=== PATIENT | male | born 1955 | race Caucasian/White ===

== ENCOUNTER 2020-01-10 07:03 | Emergency (ER) | payer MEDICAID, SELFPAY ==
[~2020-01-10] VITALS: Ht 185.4 cm; Wt 95.3 kg
[2020-01-10] MEDS ORDERED: PANTOPRAZOLE 40MG VIAL (C9113 PER 1) IV ONE (07:45)
[2020-01-10] MEDS ORDERED: LIDOCAINE 5% (LIDODERM) PATCH TD ONE (07:45)
[2020-01-10] MEDS ORDERED: ACETAMINOPHEN 325 MG TAB PO ONE (07:45)
--- NOTE | 2020-01-10 08:24 | REPVR ---
PROCEDURE INFORMATION: Exam: XR Complete Acute Abdomen Series Exam date and time: 01/10/2020 7:54 AM Age: 64 years old Clinical indication: Abdominal pain TECHNIQUE: Imaging protocol: XR complete acute abdomen series, including 2 or more views of the abdomen and a single view chest. COMPARISON: CR Abdomen, Flat Upright, PA CHEST 05/19/2015 12:45 PM FINDINGS: Lungs: Normal. No consolidation. Pleural space: Normal. No pneumothorax. Heart/Mediastinum: Normal. No cardiomegaly. Gastrointestinal tract: Copious stool in the colon. No abnormal bowel dilatation. Intraperitoneal space: Normal. No free air. Bones/joints: Normal. No acute fracture. Soft tissues: Normal. IMPRESSION: 1. No acute infiltrate. 2. No abnormal bowel dilatation. 3. Copious stool in the colon. Electronically signed by: J Luis Chávez On 01/10/2020 08:24:00 AM
[2020-01-10 08:33] LABS: BASO % 0.3 % (0.0-1.0); EOS # 0.3 10^3/uL (0.0-0.5); EOS % 1.7 % (0.0-3.0); HEMATOCRIT 44.1 % (42.0-52.0); LYMPH # 3.2 10^3/uL (1.5-5.0); LYMPH % 21.2 % (24.0-44.0); MEAN CORPUSCULAR HEMOGLOBIN 28.2 pg (27.0-33.0); MEAN CORPUSCULAR VOLUME 82.9 fl (80.0-96.0); MONO # 0.9 10^3/uL (0.0-0.8); MONO % 5.9 % (0.0-5.0); NEUTROPHILS # 10.5 10^3/uL (1.5-8.5); NEUTROPHILS % 70.2 % (36.0-66.0); PLATELET COUNT, AUTOMATED 258 10^3/uL (150-450); RED BLOOD COUNT 5.32 10^6/uL (4.30-6.10); WHITE BLOOD COUNT 14.9 10^3/uL (4.0-10.0)
--- NOTE | 2020-01-10 08:48 | REPVR ---
PROCEDURE INFORMATION: Exam: US Abdomen, Limited; Right Upper Quadrant Exam date and time: 01/10/2020 8:42 AM Age: 64 years old Clinical indication: Abdominal pain; Epigastric; Additional info: Ruq ttp TECHNIQUE: Imaging protocol: US abdomen. Real time ultrasound with image documentation. Limited exam focused on the right upper quadrant. COMPARISON: No relevant prior studies available. FINDINGS: Liver: Normal. No masses. Gallbladder: Gallbladder wall measures up to 4 mm in thickness. Multiple ring down artifact from the gallbladder wall. Multiple gallstones in the gallbladder. Gallbladder is distended. Common bile duct: CBD measures 5.5 mm in diameter. Pancreas: Pancreas is obscured by overlying bowel gas. Right kidney: Right kidney measures 10.6 cm in length. No right hydronephrosis. Normal echogenicity. IMPRESSION: 2. Gallbladder wall thickening and gallstones consistent with acute cholecystitis. 3. Multiple ring down artifact from the gallbladder wall. Consistent with adenomyomatosis of the gallbladder. Electronically signed by: J Luis Chávez On 01/10/2020 08:48:23 AM
[2020-01-10 09:18] LABS: ALBUMIN 4.2 GM/DL (3.2-5.2); ALT/SGPT 29 U/L (12-78); BILIRUBIN,DIRECT 0.1 MG/DL (0.0-0.2); BILIRUBIN,TOTAL 0.7 MG/DL (0.2-1.0); BLOOD UREA NITROGEN 14 MG/DL (7-18); CALCIUM LEVEL 9.8 MG/DL (8.8-10.2); CARBON DIOXIDE LEVEL 26 MEQ/L (21-32); CHLORIDE LEVEL 105 MEQ/L (98-107); CK-MB VALUE MASS 1.7 NG/ML (<3.6); CPK CREATINE PHOSPHOKINASE 99 U/L (39-308); CREATININE FOR GFR 1.02 MG/DL (0.70-1.30); GLOMERULAR FILTRATION RATE > 60.0 (>49); GLUCOSE, FASTING 134 MG/DL (70-100); LIPASE 76 U/L (73-393); MB/CK RELATIVE INDEX 1.72 (< OR =4); POTASSIUM SERUM 4.7 MEQ/L (3.5-5.1); SODIUM LEVEL 137 MEQ/L (136-145); TOTAL PROTEIN 8.1 GM/DL (6.4-8.2); TROPONIN I < 0.02 NG/ML (< 0.10)
[2020-01-10] MEDS ORDERED: COLA100C5 PO (09:39)
[2020-01-10] MEDS ORDERED: KETOROLAC 30 MG/ML 1ML VIAL IV ONE (10:30)
[2020-01-10] MEDS ORDERED: ISOVUE-370 76% 100ML VIAL As Ordered ONE (11:11)
[2020-01-10] MEDS ORDERED: FLAG500T PO (12:09)
[2020-01-10] MEDS ORDERED: CIPR-249 PO (12:09)
[2020-01-10] MEDS ORDERED: TYLETAB14 PO (12:09)
[2020-01-10] MEDS ORDERED: MIRA3350 PO (12:09)
[2020-01-10 12:10] VITALS: BP 154/95
[2020-01-10] MEDS ORDERED: LIDO5DIS41 TOP (12:11)
[2020-01-10] MEDS ORDERED: **NOTE PATIENT COMMENT** MISC XX SCH (21:00)
--- NOTE | 2020-01-12 13:55 | ED PDOC ---
Post-Departure Follow-Up dr lacy and escobar li formal report ogf gb us for fu Ying Diallo MD Jan 12, 2020 13:55
--- NOTE | 2020-01-27 10:50 | ECGEPIP ---
[facility] - ED Test Date: 2020-01-10 Pat Name: DEA TSAI Department: Room: - Gender: Male Manager Interface: ROSA : 1955 Requested By: ELDA Sanford PA-C Order Number: [id number] Reading MD: Be Brown Measurements Intervals Opal Rate: 54 P: 35 MO: 167 QRS: 7 QRSD: 112 T: 22 QT: 445 QTc: 424 Interpretive Statements SINUS BRADYCARDIA MODERATE INTRAVENTRICULAR CONDUCTION DELAY NSTTW CHANGES SEE SCANNED DOWNTIME REPORT
--- NOTE | 2020-02-09 10:49 | REP ---
NONCONTRAST CT ABDOMEN AND PELVIS CLINICAL: Hematuria and back pain. TECHNIQUE: Axial noncontrast images from the lung bases to the pubic symphysis with coronal and sagittal reformations. FINDINGS: Liver, spleen, pancreas, bilateral adrenal glands, and kidneys are normal. Specifically, no perinephric stranding, hydroureteronephrosis, intrarenal or obstructing ureteral calculi are identified. The gallbladder appears mildly prominent with subtle pericholecystic stranding, suggesting acute cholecystitis, and correlation is required. The enteric system is without obstruction or acute inflammatory process. Normal terminal ileum and appendix are identified in the right lower quadrant. Pelvis demonstrates normal bladder and age appropriate prostate/seminal vesicles. No pelvic fluid. No ascites. No free air. No adenopathy. Abdominal aorta without aneurysm. Lung bases are clear. IMPRESSION: * Normal urinary tract system. * Mildly prominent gallbladder with subtle pericholecystic stranding, suggesting acute cholecystitis and correlation is recommended. * No further acute abdominopelvic pathology appreciated. MTDD
--- NOTE | 2020-02-09 10:55 | REP ---
CONTRAST-ENHANCED CT OF THE ABDOMEN AND PELVIS CLINICAL: Painless hematuria. TECHNIQUE: Axial contrast-enhanced images from the lung bases to the pubic symphysis using 100 cc Isovue-370 intravenous contrast material with delayed images of the abdomen and pelvis as well as coronal and sagittal reformations. FINDINGS: The urinary tract system is normal including bilateral kidneys/ureters and bladder. Liver, spleen, pancreas, and bilateral adrenal glands are normal. The gallbladder demonstrates mild enhancing gallbladder wall with subtle pericholecystic stranding again raising the possibility of acute cholecystitis. The enteric system is without obstruction or acute inflammatory process, and a normal terminal ileum and appendix are identified in the right lower quadrant. Pelvis demonstrates normal bladder and mildly prominent prostate gland. No ascites. No free air. No adenopathy. Abdominal aorta without aneurysm or dissection. Musculoskeletal structures demonstrate age-related changes without acute process. Lung bases demonstrate moderate dependent changes. IMPRESSION: * Normal appearance to the urinary tract system. * Mild prostatomegaly. * Findings suggesting acute cholecystitis. MTDD
== END 2020-01-10 12:28 | disposition home or self-care (01) ==
LOC: M ED 07:03
DX: K80.62 Calculus of gallbladder and bile duct with acute cholecystitis without obstruction (principal); K59.00 Constipation, unspecified; M54.5 Low back pain; R31.9 Hematuria, unspecified; N40.0 Benign prostatic hyperplasia without lower urinary tract symptoms; Z88.0 Allergy status to penicillin
CPT/HCPCS: 74021; 74176; 74177; 76705; 80048; 80076; 81001; 82550; 82553; 83690; 85025; 87040; 87077; 87186; 93005; 96374; 96375; 99284; C9113; J1885; Q9967

== ENCOUNTER → 2020-04-20 | Outpatient (CLI) | payer OTHER ==
[~2020-04-20] MED LIST: CIPR-249 PO; COLA100C5 PO; FLAG500T PO; LIDO5DIS41 TOP; MIRA3350 PO; TYLETAB14 PO
[2020-04-20 11:02] LABS: APPEARANCE, URINE CLEAR (CLEAR); BACTERIA, URINE AUTO NEGATIVE (NEGATIVE); BILIRUBIN, URINE AUTO NEGATIVE (NEGATIVE); BLOOD, URINE BLOOD 2+ (NEGATIVE); COLOR, URINE YELLOW (YELLOW); GLUCOSE, URINE (UA) AUTO NEGATIVE (NEGATIVE); KETONE, URINE AUTO NEGATIVE (NEGATIVE); LEUKOCYTE ESTERASE, URINE AUTO NEGATIVE (NEGATIVE); MUCUS, URINE SMALL (NEGATIVE); NITRITE, URINE AUTO NEGATIVE (NEGATIVE); PROTEIN, URINE AUTO 1+ mg/dL (NEGATIVE); RBC, URINE AUTO 4 /HPF (0-3); SPECIFIC GRAVITY URINE AUTO 1.028 (1.002-1.035); SQUAMOUS EPITHELIAL CELL UR AU 0 /HPF (0-6); UROBILINOGEN, URINE AUTO 0.2 mg/dL (0.0-2.0); WBC, URINE AUTO 0 /HPF (0-3)
[2020-04-20 11:04] LABS: HEMATOCRIT 45.7 % (42.0-52.0); MEAN CORPUSCULAR HEMOGLOBIN 27.6 pg (27.0-33.0); MEAN CORPUSCULAR HGB CONC 32.8 g/dl (32.0-36.5); MEAN CORPUSCULAR VOLUME 84.2 fl (80.0-96.0); PLATELET COUNT, AUTOMATED 185 10^3/uL (150-450); RED BLOOD COUNT 5.43 10^6/uL (4.30-6.10); WHITE BLOOD COUNT 7.8 10^3/uL (4.0-10.0)
[2020-04-20 11:37] LABS: ALBUMIN 4.2 GM/DL (3.2-5.2); ALT/SGPT 35 U/L (12-78); BILIRUBIN,TOTAL 0.6 MG/DL (0.2-1.0); BLOOD UREA NITROGEN 27 MG/DL (7-18); CALCIUM LEVEL 9.6 MG/DL (8.8-10.2); CARBON DIOXIDE LEVEL 29 MEQ/L (21-32); CHLORIDE LEVEL 107 MEQ/L (98-107); CHOLESTEROL LEVEL 161 MG/DL (<200); CHOLESTEROL RISK RATIO 5.366 (<5); CREATININE FOR GFR 1.15 MG/DL (0.70-1.30); GLOMERULAR FILTRATION RATE > 60.0 (>49); GLUCOSE, FASTING 101 MG/DL (70-100); HDL CHOLESTEROL 30 MG/DL (>40); LDL CHOLESTEROL 109 MG/DL (<100); NON-HDL-C 131 MG/DL; POTASSIUM SERUM 4.5 MEQ/L (3.5-5.1); PROSTATIC SPECIFIC AG MONITOR 0.93 NG/ML (< 4.00); SODIUM LEVEL 139 MEQ/L (136-145); TOTAL PROTEIN 7.1 GM/DL (6.4-8.2); TRIGLYCERIDES LEVEL 112 MG/DL (<150)
== END ==
LOC: M LAB 09:53
PROVIDERS: ATTEND Family Medicine
DX: R31.9 Hematuria, unspecified (principal); Z12.5 Encounter for screening for malignant neoplasm of prostate

== ENCOUNTER → 2020-05-04 | Outpatient (CLI) | payer OTHER ==
--- NOTE | 2020-05-04 11:45 | REP ---
INDICATION: RT SHOULDER NEOPLASM UNCERTAIN MASS LIPOMA/GAGLION COMPARISON: None TECHNIQUE: Real time pearce scale ultrasound examination using high-frequency transducer. FINDINGS: Directed ultrasound examination over the right shoulder at the site of palpable mass demonstrates a somewhat well-demarcated hypoechoic avascular area measuring 12.2 x 2.8 x 5.6 cm which is nonspecific but may represent lipoma. IMPRESSION: 1. Nonspecific avascular area. Differential diagnosis includes but is not limited to lipoma. If necessary, finding may be further evaluated with CT or MRI. <Electronically signed by Logan Sanchez > 05/04/20 1149
== END ==
LOC: M RAD 08:25
PROVIDERS: ATTEND Surgery
DX: D48.7 Neoplasm of uncertain behavior of other specified sites (principal)

== ENCOUNTER → 2020-06-06 | Outpatient (CLI) | payer OTHER ==
[~2020-06-06] MED LIST changes: +ASPI1TAB77 PO
== END ==
LOC: M LABSMTC 10:13
PROVIDERS: ATTEND Anesthesiology
DX: Z01.812 Encounter for preprocedural laboratory examination (principal); Z20.822 Contact with and (suspected) exposure to COVID-19

== ENCOUNTER 2020-06-11 06:11 | Day surgery (SDC) | payer OTHER ==
[~2020-06-11] VITALS: Ht 185.4 cm; Wt 94.7 kg
[~2020-06-11 06:11] MED LIST changes: +LIDOCAINE 1% MDV 20ML VIAL SQ PRN; +LR 1,000 ML IV ONE
--- OUTSIDE RECORDS SUMMARY | 2020-06-11 06:21 | CCD ---
Author Author [facility] Organization [facility] Address Unknown Phone Unavailable Care Team Providers Care Oven Worker Name Role Phone BRYDEN, A JEAN CARLOS DO Unavailable Unavailable BRYDEN, A JEAN CARLOS DO Unavailable Unavailable BRYDEN, A JEAN CARLOS DO Unavailable Unavailable BRYDEN, A JEAN CARLOS DO Unavailable Unavailable BRYDEN, A JEAN CARLOS DO Unavailable Unavailable BRYDEN, A JEAN CARLOS DO Unavailable Unavailable BRYDEN, A JEAN CARLOS DO Unavailable Unavailable BRYDEN, A JEAN CARLOS DO Unavailable Unavailable BRYDEN, A JEAN CARLOS DO Unavailable Unavailable BRYDEN, A JEAN CARLOS DO Unavailable Unavailable BRYDEN, A JEAN CARLOS DO Unavailable Unavailable BRYDEN, A JEAN CARLOS DO Unavailable Unavailable BRYDEN, A JEAN CARLOS DO Unavailable Unavailable BRYDEN, A JEAN CARLOS DO Unavailable Unavailable BRYDEN, A JEAN CARLOS DO Unavailable Unavailable BRYDEN, A JEAN CARLOS DO Unavailable Unavailable BRYDEN, A JEAN CARLOS DO Unavailable Unavailable BRYDEN, A JEAN CARLOS DO Unavailable Unavailable BRYDEN, A JEAN CARLOS DO Unavailable Unavailable BRYDEN, A JEAN CARLOS DO Unavailable Unavailable BRYDEN, A JEAN CARLOS DO Unavailable Unavailable BRYDEN, A JEAN CARLOS DO Unavailable Unavailable BRYDEN, A JEAN CARLOS DO Unavailable Unavailable BRYDEN, A JEAN CARLOS DO Unavailable Unavailable BRYDEN, A JEAN CARLOS DO Unavailable Unavailable BRYDEN, A JEAN CARLOS DO Unavailable Unavailable BRYDEN, A JEAN CARLOS DO Unavailable Unavailable Re-disclosure Warning The records that you are about to access may contain information from federally-assisted alcohol or drug abuse programs. If such information is present, then the following federally mandated warning applies: This information has been disclosed to you from records protected by federal confidentiality rules (42 CFR part 2). The federal rules prohibit you from making any further disclosure of this information unless further disclosure is expressly permitted by the written consent of the person to whom it pertains or as otherwise permitted by 42 CFR part 2. A general authorization for the release of medical or other information is NOT sufficient for this purpose. The Federal rules restrict any use of the information to criminally investigate or prosecute any alcohol or drug abuse patient.The records that you are about to access may contain highly sensitive health information, the redisclosure of which is protected by Article 27-F of the [facility] Public Health law. If you continue you may have access to information: Regarding HIV / AIDS; Provided by facilities licensed or operated by the [facility] Office of Mental Health; or Provided by the [facility] Office for People With Developmental Disabilities. If such information is present, then the following [facility] mandated warning applies: This information has been disclosed to you from confidential records which are protected by state law. State law prohibits you from making any further disclosure of this information without the specific written consent of the person to whom it pertains, or as otherwise permitted by law. Any unauthorized further disclosure in violation of state law may result in a fine or alf sentence or both. A general authorization for the release of medical or other information is NOT sufficient authorization for further disc losure. Family History Family Member Name Family Member Gender Family Member Status Date o f Status Description Data Source(s) Unknown Female Problem [facility] ([facility]) Encounters Encounter Providers Location Date Indications Data Source(s ) Outpatient Attender: JEAN CARLOS [place]/Tyler/Tien/Philip ndarthur 01/15/2020 02:50:00 PM EDT [facility] ([facility], ) Insurance Providers Payer name Policy type / Coverage type Policy ID Covered libertarian ID Covered libertarian's relationship to moore Policy Moore Plan Information [employer] [facility] [id number] SP [id number] [facility] O [id number] S [id number] [employer] MCDO [id number] SP [id number] MEDICAID M [id number] S [id number] [place] [id number] SP [id number] SELF PAY ONLY [id number] SP [id number] SELF PAY ONLY UNAVAILABLE UNAV AILABLE SELF PAY UNAVAILABLE SP UNAVAILA [employer] [id number] SP [id number] Results ID Date Data Source [id number] 06/06/2020 10:30:00 AM EST [facility] Name Value Range Interpretation Code Description Data Cherelle rce(s) Supporting Document(s) SARS coronavirus 2 RNA Not Detected [facility] [place] This lab was ordered by [facility] and reported by [facility]. Procedure Vital Signs ID Date Data Source UNK Name Value Range Interpretation Code Description Data Source(s) Body surface area Derived from formula 2.21 m2 2.21 m2 [facility] ([facility]) Body weight 96.730 kg 96.730 kg [facility] ([facility]) [place] body weight 184 [lb_av] 184 [lb_av] [facility] ([facility]) Body mass index (BMI) [Ratio] 28.1 kg/m2 28.1 k g/m2 [facility] ([facility]) Body weight 213.25 [lb_av] 213.25 [lb_av] [facility] ([facility]) Body height 73 [in_i] 73 [in_i] [facility] ([facility]) 6'1" Heart rate 76 /min 76 /min [facility] ([facility]) Diastolic blood pressure 90 mm[Hg] 90 mm[Hg] [facility] ([facility]) Systolic blood pressure 148 mm[Hg] 148 mm[Hg] [facility] Body surface area Derived from formula 2.18 m2 2.18 m2 [facility] ([facility]) Body weight 93.895 kg 93.895 kg [facility] ([facility]) [place] body weight 184 [lb_av] 184 [lb_av] [facility] ([facility]) Body mass index (BMI) [Ratio] 27.3 kg/m2 27.3 k g/m2 [facility] ([facility]) Body weight 207.00 [lb_av] 207.00 [lb_av] VINICIO Shine ([facility], ) Body height 73 [in_i] 73 [in_i] JOSH ([facility], ) 6'1" Diastolic blood pressure 98 mm[Hg] 98 mm[Hg] [facility] ([facility], ) Systolic blood pressure 159 mm[Hg] 159 mm[Hg] Josse SEAMAN ([facility], )
--- OUTSIDE RECORDS SUMMARY | 2020-06-11 06:21 | CCD | Continuity of Care Document ---
Author Author Kyle VICENTE DO Organization Unknown Address [address], [address] [place] [address] Phone [phone] Care Team Providers Care Assembler Motor Vehicle Name Role Phone Mauricio Kamara M.D. AUTM [phone] Problems Description No Information Available Social History Type Date Description Comments Sex Unknown ETOH Use Denies alcohol use Tobacco Use Start: Unknown Denies Smoking Recreational Drug Use Denies Drug Use Allergies, Adverse Reactions, Alerts Active Allergies Reaction Severity Comments Date Penicillin V Difficulty breathing 020 Medications Description No Information Available Immunizations Description No Information Available Vital Signs Date Vital Result Comment 04/22/2020 2:13pm BP Systolic 148 mmHg BP Diastolic 90 mmHg Heart Rate 76 /min Height 73 inches 6'1" Weight 213.25 lb BMI (Body Mass Index) 28.1 kg/m2 [place] Body Weight 184 lb Weight 96.730 kg BSA (Body Surface Area) 2.21 m2 01/15/2020 3:30pm BP Systolic 159 mmHg BP Diastolic 98 mmHg Height 73 inches 6'1" Weight 207.00 lb BMI (Body Mass Index) 27.3 kg/m2 [place] Body Weight 184 lb Weight 93.895 kg BSA (Body Surface Area) 2.18 m2 Results Description No Information Available Procedures Description No Information Available Medical Devices Description No Information Available Encounters Type Date Location Provider Dx Diagnosis Office Visit 01/15/2020 2:50p [facility] Daniel Vicente DO K80.20 Calculus of gallbladder w/o cholecystiti s w/o obstruction Assessments Date Code Description Provider 01/15/2020 K80.20 Calculus of gallblad cyrus without cholecystitis without obstruction Daniel Vicente DO Plan of Treatment 01/15/2020 - Daniel Vicente DO* K80.20 Calculus of gallbladder without cholecystitis without obstruction* Comments:* 64y/o male with RUQ pains that sent him to the ER. He was diagnosed with cholelithiasis and constipation. On exam he has no more pains, and no problems since being in the ER. He points to his lower chest and upper back as to where the pain was. The pain was never in the abdomen. I suspect that he has asymptomatic cholelithiasis, and likely had some musculoskeletal pains that took him to the ER. I explained to him the common symptoms for cholelithiasis, and advised him to call me if he starts to have any more. Follow up as needed. Functional Status Description No Information Available Mental Status Description No Information Available Referrals Refer to Dr Reason for Referral Status Appt Date Daniel Vicente D.O. EVAL LIPOMA, RIGHT SHOULDER Scheduled 04/22/[address] [place] [id number] [phone]
[2020-06-11] MEDS ORDERED: propofoL 200 MG/20 ML VIAL As Ordered ONE ×2 (07:14→08:21)
[2020-06-11] MEDS ORDERED: MIDAZOLAM INJ 2MG/2ML VIAL (J2250 PER 1MG) As Ordered ONE (07:15)
[2020-06-11] MEDS ORDERED: LIDOCAINE 2% 100MG/5ML SDV (FOR ANES.) As Ordered ONE (07:15)
[2020-06-11] MEDS ORDERED: dexameTHASONE 4 MG/ML 1ML VIAL (J1100 PER 1MG) As Ordered ONE (07:16)
[2020-06-11] MEDS ORDERED: BUPIVACAINE/EPIN 0.25% 30 ML VIAL As Ordered ONE (07:16)
[2020-06-11] MEDS ORDERED: fentaNYL 100 MCG/2 ML INJECTION (J3010) As Ordered ONE (07:16)
[2020-06-11] MEDS ORDERED: ONDANSETRON 4MG/2ML VIAL As Ordered ONE (07:16)
[2020-06-11 09:15] VITALS: BP 131/89
[2020-06-11] MEDS ORDERED: LR 1,000 ML IV SCH (10:00)
[2020-06-11] MEDS ORDERED: fentaNYL 100 MCG/2 ML INJECTION (J3010) IV PRN (10:00)
[2020-06-11] MEDS ORDERED: oxyCODONE 5MG TAB PO PRN (10:00)
[2020-06-11] MEDS ORDERED: MEPERIDINE INJ 25 MG/ML VIAL (J2175) IV PRN (10:00)
[2020-06-11] MEDS ORDERED: ONDANSETRON 4MG/2ML VIAL IV PRN (10:00)
[2020-06-11] MEDS ORDERED: METOCLOPRAMIDE INJ 10MG/2ML VIAL (J2765 PER 1) IV PRN (10:00)
[2020-06-11] MEDS ORDERED: NORCO, ANEXSIA 5/325MG TABLET (HYDROcodone/ACETAMINOPHEN) PO PRN (11:00)
--- NOTE | 2020-07-13 10:32 | RO ---
OPERATIVE NOTE DATE OF OPERATION: 06/11/2020 PREOPERATIVE DIAGNOSIS: Right shoulder lipoma. POSTOPERATIVE DIAGNOSIS: Right shoulder lipoma. PROCEDURE: Excision right shoulder lipoma. SURGEON: Daniel Vicente DO CHAIN DYER: None. ANESTHESIA: IV sedation with local. COMPLICATIONS: None. INDICATIONS FOR PROCEDURE: The patient is a 65-year-old male who presents with a large mass over the right shoulder. It is suspicious to be a lipoma that was confirmed with an ultrasound. Recommendation was to proceed with surgical excision in the operating room. Risks and benefits of the procedure not limited to but including bleeding, infection, damage to surrounding structures, seroma, need for further surgery were discussed in detail with the patient, informed consent was obtained and procedure planned. DESCRIPTION OF PROCEDURE: The patient was brought back to operating room. After sufficient sedation the right shoulder was sterilely prepped and draped. Time out was done to confirm proper patient, proper procedure. Following that local was injected into the skin and subcutaneous tissue overlying the mass. 10 cm incision was made with scalpel, the lipoma capsule was entered, the lipoma was carefully dissected free circumferentially all the way down to the muscle using combination of blunt and sharp dissection. Once dissection was completed the lipoma was gently manipulated out of the incision. Once it was removed the base of the wound was examined to confirm hemostasis. Skin incisions were then closed with 3-0 nylon interrupted sutures. Once the incision was closed the specimen was measured on the back table measuring 14 x 14 cm. The area was cleaned and dried. 4 x 4s and tape were applied thus ending the procedure. The patient tolerated the procedure well and was sent to PACU in stable condition.
== END 2020-06-11 09:40 | disposition home or self-care (01) ==
LOC: M SDC 06:11
PROVIDERS: ATTEND Surgery
DX: D17.21 Benign lipomatous neoplasm of skin and subcutaneous tissue of right arm (principal); G43.909 Migraine, unspecified, not intractable, without status migrainosus; R06.83 Snoring; Z86.718 Personal history of other venous thrombosis and embolism; Z88.0 Allergy status to penicillin
CPT/HCPCS: 23071; 88304; J1100; J2250; J2405; J3010

== ENCOUNTER → 2021-07-26 | Outpatient (CLI) | payer MEDICARE, OTHER ==
[~2021-07-26] MED LIST changes: -LIDOCAINE 1% MDV 20ML VIAL SQ PRN; -LR 1,000 ML IV ONE
[2021-07-26 13:31] LABS: HEMATOCRIT 49.5 % (42.0-52.0); HEMOGLOBIN 16.6 g/dl (13.5-17.5); MEAN CORPUSCULAR HEMOGLOBIN 28.1 pg (27.0-33.0); MEAN CORPUSCULAR HGB CONC 33.5 g/dl (32.0-36.5); MEAN CORPUSCULAR VOLUME 83.8 fl (80.0-96.0); PLATELET COUNT, AUTOMATED 213 10^3/uL (150-450); RED BLOOD COUNT 5.91 10^6/uL (4.30-6.10); WHITE BLOOD COUNT 6.7 10^3/uL (4.0-10.0)
[2021-07-26 13:55] LABS: APPEARANCE, URINE CLEAR (CLEAR); BACTERIA, URINE AUTO NEGATIVE (NEGATIVE); BILIRUBIN, URINE AUTO NEGATIVE (NEGATIVE); BLOOD, URINE BLOOD NEGATIVE (NEGATIVE); COLOR, URINE YELLOW (YELLOW); GLUCOSE, URINE (UA) AUTO NEGATIVE (NEGATIVE); KETONE, URINE AUTO NEGATIVE (NEGATIVE); LEUKOCYTE ESTERASE, URINE AUTO NEGATIVE (NEGATIVE); MUCUS, URINE SMALL (NEGATIVE); NITRITE, URINE AUTO NEGATIVE (NEGATIVE); PROTEIN, URINE AUTO 1+ mg/dL (NEGATIVE); RBC, URINE AUTO 3 /HPF (0-3); SQUAMOUS EPITHELIAL CELL UR AU 0 /HPF (0-6); UROBILINOGEN, URINE AUTO 0.2 mg/dL (0.0-2.0); WBC, URINE AUTO 1 /HPF (0-3)
[2021-07-26 14:55] LABS: ALBUMIN 4.6 GM/DL (3.2-5.2); ALT/SGPT 41 U/L (12-78); BLOOD UREA NITROGEN 22 MG/DL (7-18); CALCIUM LEVEL 10.2 MG/DL (8.8-10.2); CARBON DIOXIDE LEVEL 28 MEQ/L (21-32); CHLORIDE LEVEL 107 MEQ/L (98-107); CHOLESTEROL LEVEL 184 MG/DL (<200); CHOLESTEROL RISK RATIO 7.666 (<5); CREATININE FOR GFR 1.12 MG/DL (0.70-1.30); GLOMERULAR FILTRATION RATE > 60.0 (>49); GLUCOSE, FASTING 93 MG/DL (70-100); HDL CHOLESTEROL 24 MG/DL (>40); LDL CHOLESTEROL 110 MG/DL (<100); NON-HDL-C 160 MG/DL; POTASSIUM SERUM 4.4 MEQ/L (3.5-5.1); PROSTATIC SPECIFIC AG MONITOR 0.88 NG/ML (< 4.00); SODIUM LEVEL 140 MEQ/L (136-145); TOTAL PROTEIN 7.8 GM/DL (6.4-8.2); TRIGLYCERIDES LEVEL 248 MG/DL (<150)
== END ==
LOC: M LAB 11:57
PROVIDERS: ATTEND Family Medicine
DX: Z12.5 Encounter for screening for malignant neoplasm of prostate (principal); E78.00 Pure hypercholesterolemia, unspecified; R97.20 Elevated prostate specific antigen [PSA]

== ENCOUNTER → 2022-01-08 | Outpatient (CLI) | payer MEDICARE, OTHER ==
[~2022-01-08] MED LIST changes: +VERA120T67 PO; +[UNRECOGNIZED DRUG - CODE] PO
== END ==
LOC: M LABSMTC 09:42
PROVIDERS: ATTEND Anesthesiology
DX: Z01.812 Encounter for preprocedural laboratory examination (principal)

== ENCOUNTER 2022-01-11 07:40 | Day surgery (SDC) | payer MEDICARE, OTHER ==
[~2022-01-11] VITALS: Ht 185.4 cm; Wt 97.6 kg
[~2022-01-11 07:40] MED LIST changes: +NS 1,000 ML IV ONE
[2022-01-11] MEDS ORDERED: propofoL 200 MG/20 ML VIAL As Ordered ONE (08:35)
[2022-01-11] MEDS ORDERED: LIDOCAINE 2% 100MG/5ML SDV (FOR ANES.) As Ordered ONE (08:35)
[2022-01-11 10:45] VITALS: BP 189/92
== END 2022-01-11 11:15 | disposition home or self-care (01) ==
LOC: M SDC 07:40
PROVIDERS: ATTEND Internal Medicine Gastroenterology
DX: Z12.11 Encounter for screening for malignant neoplasm of colon (principal); K64.0 First degree hemorrhoids; K92.9 Disease of digestive system, unspecified; Z88.0 Allergy status to penicillin
CPT/HCPCS: 71045; G0121

== ENCOUNTER → 2022-07-18 | Outpatient (CLI) | payer MEDICARE, OTHER ==
[~2022-07-18] MED LIST changes: -NS 1,000 ML IV ONE
[2022-07-18 10:41] LABS: BASO % 0.6 % (0.0-1.0); EOS # 0.4 10^3/uL (0.0-0.5); EOS % 5.6 % (0.0-3.0); HEMATOCRIT 48.3 % (42.0-52.0); HEMOGLOBIN 15.1 g/dl (13.5-17.5); LYMPH # 2.1 10^3/uL (1.5-5.0); LYMPH % 33.6 % (24.0-44.0); MEAN CORPUSCULAR HEMOGLOBIN 24.6 pg (27.0-33.0); MEAN CORPUSCULAR HGB CONC 31.3 g/dl (32.0-36.5); MEAN CORPUSCULAR VOLUME 78.8 fl (80.0-96.0); MONO # 0.6 10^3/uL (0.0-0.8); MONO % 9.9 % (2.0-8.0); NEUTROPHILS # 3.1 10^3/uL (1.5-8.5); PLATELET COUNT, AUTOMATED 218 10^3/uL (150-450); RED BLOOD COUNT 6.13 10^6/uL (4.30-6.10); WHITE BLOOD COUNT 6.3 10^3/uL (4.0-10.0)
[2022-07-18 11:15] LABS: ALBUMIN 4.2 G/DL (3.2-5.2); ALKALINE PHOSPHATASE 76 U/L (46-116); ALT/SGPT 23 U/L (7.0-40); AST/SGOT 19 U/L (<34); BILIRUBIN,TOTAL 0.9 MG/DL (0.3-1.2); BLOOD UREA NITROGEN 24 MG/DL (9-23); CALCIUM LEVEL 9.6 MG/DL (8.3-10.6); CARBON DIOXIDE LEVEL 28 MMOL/L (20-31); CHLORIDE LEVEL 105 MMOL/L (98-107); CHOLESTEROL LEVEL 155 MG/DL (<200); CHOLESTEROL RISK RATIO 5.53 (<5); CREATININE FOR GFR 1.03 MG/DL (0.70-1.30); GLOMERULAR FILTRATION RATE > 60.0 (>49); GLUCOSE, FASTING 99 MG/DL (74-106); LDL CHOLESTEROL 100.6 MG/DL (<100); NON-HDL-C 127 MG/DL; POTASSIUM SERUM 4.5 MMOL/L (3.5-5.1); PROSTATIC SPECIFIC AG MONITOR 0.94 NG/ML (< 4.00); SODIUM LEVEL 139 MMOL/L (136-145); TRIGLYCERIDES LEVEL 132 MG/DL (<150)
== END ==
LOC: M LAB 09:54
PROVIDERS: ATTEND Family Medicine
DX: Z12.5 Encounter for screening for malignant neoplasm of prostate (principal); Z79.899 Other long term (current) drug therapy; R97.20 Elevated prostate specific antigen [PSA]

== ENCOUNTER → 2023-11-14 | Outpatient (CLI) | payer MEDICARE, OTHER ==
[2023-11-14 10:48] LABS: BASO % 0.7 % (0.0-1.0); EOS # 0.4 10^3/uL (0.0-0.5); EOS % 7.8 % (0.0-3.0); HEMOGLOBIN 16.4 g/dl (13.5-17.5); LYMPH # 1.8 10^3/uL (1.5-5.0); LYMPH % 31.8 % (24.0-44.0); MEAN CORPUSCULAR HEMOGLOBIN 27.6 pg (27.0-33.0); MEAN CORPUSCULAR HGB CONC 33.5 g/dl (32.0-36.5); MEAN CORPUSCULAR VOLUME 82.4 fl (80.0-96.0); MONO # 0.6 10^3/uL (0.0-0.8); MONO % 11.6 % (2.0-8.0); NEUTROPHILS # 2.6 10^3/uL (1.5-8.5); NEUTROPHILS % 47.6 % (36.0-66.0); PLATELET COUNT, AUTOMATED 184 10^3/uL (150-450); RED BLOOD COUNT 5.95 10^6/uL (4.30-6.10); WHITE BLOOD COUNT 5.5 10^3/uL (4.0-10.0)
[2023-11-14 11:18] LABS: PROSTATIC SPECIFIC AG MONITOR 0.64 NG/ML (< 4.00)
[2023-11-14 11:20] LABS: ALBUMIN 4.1 G/DL (3.2-5.2); ALKALINE PHOSPHATASE 73 U/L (46-116); ALT/SGPT 29 U/L (7.0-40); AST/SGOT 19 U/L (<34); BILIRUBIN,TOTAL 1.5 MG/DL (0.3-1.2); BLOOD UREA NITROGEN 18 MG/DL (9-23); CALCIUM LEVEL 9.8 MG/DL (8.3-10.6); CARBON DIOXIDE LEVEL 32 MMOL/L (20-31); CHLORIDE LEVEL 108 MMOL/L (98-107); CHOLESTEROL LEVEL 154 MG/DL (<200); CREATININE FOR GFR 1.05 MG/DL (0.70-1.30); GLOMERULAR FILTRATION RATE > 60.0 (>49); GLUCOSE, FASTING 112 MG/DL (74-106); HDL CHOLESTEROL 23.3 MG/DL (>40); LDL CHOLESTEROL 98.3 MG/DL (<100); NON-HDL-C 130.7 MG/DL; POTASSIUM SERUM 4.5 MMOL/L (3.5-5.1); SODIUM LEVEL 142 MMOL/L (136-145); TOTAL PROTEIN 6.9 G/DL (5.7-8.2); TRIGLYCERIDES LEVEL 162 MG/DL (<150)
[2023-11-14 11:55] LABS: HEPATITIS C VIRUS ABY INDEX < 0.02 INDEX (<0.8)
[2023-11-16 14:11] LABS: RUBEOLA IgG ANTIBODY > 300.00 AU/mL (>16.49)
== END ==
LOC: M LAB 10:10
PROVIDERS: ATTEND Family Medicine
DX: Z00.00 Encounter for general adult medical examination without abnormal findings (principal); Z11.59 Encounter for screening for other viral diseases; Z12.5 Encounter for screening for malignant neoplasm of prostate; Z79.899 Other long term (current) drug therapy

== ENCOUNTER → 2024-07-09 | Outpatient (CLI) | payer MEDICARE, OTHER | LOC: M WUC 10:01 | PROVIDERS: ATTEND Family Medicine | DX: M25.511 Pain in right shoulder (principal) ==

== ENCOUNTER → 2025-01-07 | Outpatient (CLI) | payer MEDICARE, OTHER ==
[~2025-01-07] MED LIST changes: +LIDO1ADH93 TOP; -LIDO5DIS41 TOP
[2025-01-07 12:05] LABS: BASO # 0.0 10^3/uL (0.0-0.2); BASO % 0.5 % (0.0-1.0); EOS # 0.4 10^3/uL (0.0-0.5); EOS % 6.3 % (0.0-3.0); LYMPH # 1.9 10^3/uL (1.5-5.0); LYMPH % 30.0 % (24.0-44.0); MONO # 0.8 10^3/uL (0.0-0.8); MONO % 13.2 % (2.0-8.0); NEUTROPHILS # 3.1 10^3/uL (1.5-8.5); NEUTROPHILS % 49.5 % (36.0-66.0); PLATELET COUNT, AUTOMATED 203 10^3/uL (150-450)
[2025-01-07 12:35] LABS: ALT/SGPT 16.0 U/L (7.0-40); AST/SGOT 15.0 U/L (<34); CALCIUM LEVEL 10.2 MG/DL (8.3-10.6); CARBON DIOXIDE LEVEL 30.0 MMOL/L (20-31); CHLORIDE LEVEL 103.0 MMOL/L (98-107); CHOLESTEROL LEVEL 144.0 MG/DL (<200); CHOLESTEROL RISK RATIO 5.58 (<5); CREATININE FOR GFR 1.09 MG/DL (0.70-1.30); GLOMERULAR FILTRATION RATE 73.9 (>49); LDL CHOLESTEROL 89.2 MG/DL (<100); NON-HDL-C 118.2 MG/DL; POTASSIUM SERUM 4.5 MMOL/L (3.5-5.1); PROSTATIC SPECIFIC AG MONITOR 1.05 NG/ML (< 4.00); SODIUM LEVEL 142.0 MMOL/L (136-145); TRIGLYCERIDES LEVEL 145.0 MG/DL (<150)
== END ==
LOC: M LAB 09:58
PROVIDERS: ATTEND Family Medicine
DX: Z12.5 Encounter for screening for malignant neoplasm of prostate (principal); E78.00 Pure hypercholesterolemia, unspecified; R97.20 Elevated prostate specific antigen [PSA]